=== PATIENT | female | born 1955 | race Caucasian/White ===

== ENCOUNTER 2016-09-18 14:41 | Day surgery (SDC) | payer OTHER ==
[~2016-09-18] VITALS: Ht 152.4 cm; Wt 53.8 kg
[2016-09-18 16:13] VITALS: Ht 152.4 cm; Wt 53.8 kg
[2016-09-18] MEDS ORDERED: LOSA1TAB21 PO (16:19)
[2016-09-18] MEDS ORDERED: LANT3I SC (16:23)
[2016-09-18] MEDS ORDERED: AMLO-145 PO (16:23)
[2016-09-18] MEDS ORDERED: ASCO500C7 PO (16:23)
[2016-09-18] MEDS ORDERED: HUM100VI13 SQ (16:23)
[2016-09-18] MEDS ORDERED: ATEN-51 PO (16:23)
[2016-09-18] MEDS ORDERED: LOSA50TA6 PO (16:23)
[2016-09-18] MEDS ORDERED: FER325 PO (16:23)
[2016-09-18 16:36] VITALS: BP 184/77; PULSE 72; RESP 19
[2016-09-18] MEDS ORDERED: FENTAnyl 50 MCG/ML VIAL ONE (17:36)
[2016-09-18] MEDS ORDERED: MIDAZOLAM 1 MG/ML 2 ML INJ ONE ×2 (17:36)
--- NOTE | 2016-09-24 04:46 | GILP ---
DATE OF PROCEDURE: 09/18/2016 PROCEDURE PERFORMED: Colonoscopy and biopsy. SURGEON: Katharine Lomeli MD PREOP DIAGNOSIS: Positive occult blood in stool. POSTOP DIAGNOSES: 1. Colonoscopy all the way to the cecum. 2. Small right colon polyp was removed using the biopsy forceps. 3. Diverticulosis of the colon. 4. Internal hemorrhoids. INDICATION: Ms Conchita Dangelo is a 61-year-old female patient who was noted to have positive occult blood in stool. The patient was scheduled for colonoscopy for further evaluation. The procedure and possible complications were well explained to the patient. The patient understood and consented to the procedure. PROCEDURE: Under the influence of fentanyl and Versed the colonoscope was carefully introduced in the rectum. Under direct vision it was advanced all the way to the cecum. FINDINGS: There is a small right colon polyp and it was removed using the biopsy forceps. The patient was noted to have diverticulosis of the colon and internal hemorrhoids. She tolerated the procedure very well. There was no complication from the procedure. At the end of the procedure she was awake with stable vital signs and she was discharged under the care of her family. IMPRESSION: 1. Colonoscopy all the way to the cecum. 2. Small right colon polyp was removed using the biopsy forceps. 3. Diverticulosis of the colon. 4. Internal hemorrhoids. PLAN: Next screening colonoscopy in 10 years. Dictated By: MD CHRIS White/[facility]/[place] /Document#: [id number]
== END 2016-09-18 21:38 | disposition home or self-care (01) ==
LOC: GIL 14:41
PROVIDERS: ATTEND Internal Medicine Gastroenterology
DX: K63.5 Polyp of colon (principal); K57.90 Diverticulosis of intestine, part unspecified, without perforation or abscess without bleeding; K64.8 Other hemorrhoids; I10 Essential (primary) hypertension; E11.9 Type 2 diabetes mellitus without complications
CPT/HCPCS: 45380; 82962; 88305; J2250; J3010; Z7610

== ENCOUNTER 2017-05-15 09:50 | Day surgery (SDC) | END 2017-05-15 12:42 | disposition home or self-care (01) ==